=== PATIENT | male | born 1940 | race Hispanic/Latino ===

== ENCOUNTER 2017-02-17 13:06 | Inpatient (IN) | payer MEDICARE, OTHER ==
[2017-02-17 13:06] VITALS: BMI 26.6
--- NOTE | 2017-02-17 14:19 | ED PDOC ---
HPI: Male Pain Time Seen by Provider: 02/17/17 13:20 Chief Complaint (Nursing): Male Genitourinary Chief Complaint (Provider): Urinary retention History Per: Patient History/Exam Limitations: no limitations Onset/Duration Of Symptoms: Days (x1) Current Symptoms Are (Timing): Still Present Severity: Mild Pain Scale Rating Of: 2 Associated Symptoms: Urinary Symptoms (urinary retention) Additional Complaint(s): Dayday Cleaning is a 76 year old male, with a past medical history of bladder CA stage 2 and incisional hernia, who was sent to the emergency department by his PMD for urinary retention after Dr. Germain was unable to place august due to strictures. Dr. Germain wants to take patient to the OR. Patient denies any other medical complaints. PMD: Jessica Germain Past Medical History Reviewed: Historical Data, Nursing Documentation, Vital Signs Vital Signs: Last Vital Signs Temp 98.0 F 02/17/17 13:13 Pulse 70 02/17/17 13:13 Resp 16 02/17/17 13:13 BP 144/65 02/17/17 13:13 Pulse Ox 100 02/17/17 13:13 - Medical History PMH: Diverticulitis, HTN, Hypercholesterolemia - Surgical History Surgical History: Hernia Repair - Family History Family History: States: Unknown Family Hx - Social History Ex-Smoker (has not smoked in the last 12 months): Yes Alcohol: Occasional Drugs: Denies - Immunization History Hx Tetanus Toxoid Vaccination: No Hx Influenza Vaccination: Yes (2016) Hx Pneumococcal Vaccination: Yes (2016) - Home Medications Home Medications: Ambulatory Orders Medication Instructions Recorded Ascorbic Acid [Vitamin C] 1,000 mg PO HS 04/15/16 Ascorbic Acid [Vitamin C] 1,500 mg PO QAM 04/15/16 Atorvastatin [Lipitor] 20 mg PO HS 04/15/16 Docusate [Colace] 100 mg PO BID 04/15/16 Enalapril Maleate [Vasotec] 10 mg PO DAILY 04/15/16 Flaxseed Oil [Flax Seed Oil] 1,400 mg PO HS 04/15/16 Multivit-Min/FA/Lycopen/Lutein 1 tab PO DAILY 04/15/16 [Centrum Silver Tablet] Omeprazole [Omeprazole] 20 mg PO QPM 04/15/16 Vit C/Vit E/Lutein/Min/[place]usa-3 1 cap PO DAILY 04/15/16 [Ocuvite Softgel] Bethanechol [Urecholine] 50 mg PO BID 04/25/16 - Allergies Allergies/Adverse Reactions: Allergies Allergy/AdvReac Type Severity Reaction Status Date / Time No Known Allergies Allergy Verified 02/17/17 13:13 Review of Systems ROS Statement: Except As Marked, All Systems Reviewed And Found Negative Genitourinary Male: Positive for: Other (urinary retention) Physical Exam - Reviewed Nursing Documentation Reviewed: Yes Vital Signs Reviewed: Yes - Physical Exam Appears: Positive for: Well, Non-toxic, No Acute Distress Head Exam: Positive for: ATRAUMATIC, NORMAL INSPECTION, NORMOCEPHALIC Skin: Positive for: Normal Color, Warm, Dry Neck: Positive for: Normal, Painless ROM, Supple Cardiovascular/Chest: Positive for: Regular Rate, Rhythm. Negative for: Murmur Respiratory: Positive for: Normal Breath Sounds. Negative for: Respiratory Distress Gastrointestinal/Abdominal: Positive for: Normal Exam, Bowel Sounds, Soft, Distended (slight). Negative for: Tenderness Back: Positive for: Normal Inspection. Negative for: L CVA Tenderness, R CVA Tenderness, Vertebral Tenderness Extremity: Positive for: Normal ROM. Negative for: Pedal Edema, Deformity Neurologic/Psych: Positive for: Alert, Oriented (x3). Negative for: Motor/ Sensory Deficits - Laboratory Results Result Diagrams: 02/17/17 14:28 02/17/17 14:28 - ECG O2 Sat by Pulse Oximetry: 100 (RA) Pulse Ox Interpretation: Normal Medical Decision Making Medical Decision Making: Initial Impression: Urinary retention for procedure today Initial Plan: --Type and screen --EKG --Comp metabolic Panel --CBC w/ differential --PTT --Patient --Chest potable [RAD] --Urine culture --Urinalysis --reevaluation dr germain aware of pt and of admission. 15:02 Chest x-ray FINDINGS: LUNGS: The lungs are hyperinflated and there is peribronchial thickening with chronic changes in both lungs. No focal consolidation. PLEURA: No significant pleural effusion identified, no pneumothorax apparent. CARDIOVASCULAR: Normal. OSSEOUS STRUCTURES: No significant abnormalities. VISUALIZED UPPER ABDOMEN: Normal. OTHER FINDINGS: None. IMPRESSION: No active disease. COPD. Scribe Attestation: Documented by Ziyad Morrison, acting as a scribe for Rachel Sampson MD Provider Scribe Attestation: All medical record entries made by the Scribe were at my direction and personally dictated by me. I have reviewed the chart and agree that the record accurately reflects my personal performance of the history, physical exam, medical decision making, and the department course for this patient. I have also personally directed, reviewed, and agree with the discharge instructions and disposition. Disposition - Clinical Impression Clinical Impression: Urinary retention - Patient ED Disposition Is Patient to be Admitted: Yes - Disposition Disposition Time: 15:00 Condition: STABLE
[2017-02-17 14:37] LABS: BASO # 0.1 K/uL (0.0-0.2); BASO % 0.7 % (0.0-2.0); EOS # 0.2 K/uL (0.0-0.7); EOS % 2.3 % (0.0-4.0); HEMATOCRIT 50.7 % (35.0-51.0); LYMPH # 1.3 K/uL (1.0-4.3); LYMPH % 16.5 % (20.0-40.0); MEAN CORPUSCULAR HEMOGLOBIN 28.4 pg (27.0-31.0); MEAN PLATELET VOLUME 8.3 fl (7.2-11.7); MONO # 0.7 K/uL (0.0-0.8); MONO % 8.7 % (0.0-10.0); NEUT # 5.7 K/uL (1.8-7.0); NEUT % 71.8 % (50.0-75.0); NRBC % 0.2 % (0.0-0.0); RED CELL DISTRIBUTION WIDTH 16.8 % (11.5-14.5)
[2017-02-17 14:52] LABS: ALKALINE PHOSPHATASE 74 U/L (38-126); ALT/SGPT 33 U/L (21-72); AST/SGOT 35 U/L (17-59); BILIRUBIN,TOTAL 0.8 mg/dl (0.2-1.3); BLOOD UREA NITROGEN 19 mg/dl (9-20); CALCIUM 9.3 mg/dL (8.4-10.2); CARBON DIOXIDE 25 mmol/L (22-30); CHLORIDE 105 mmol/L (98-107); GFR AFRICAN-AMERICAN > 60; GLUCOSE,RANDOM 85 mg/dL (75-110); PARTIAL THROMBOPLASTIN TIME 31.9 Seconds (25.6-37.1); SODIUM 142 mmol/l (132-148); TOTAL PROTEIN 8.3 G/DL (6.3-8.2)
--- NOTE | 2017-02-17 15:04 | RAD ---
HISTORY: urinary COMPARISON: No prior. FINDINGS: LUNGS: The lungs are hyperinflated and there is peribronchial thickening with chronic changes in both lungs. No focal consolidation. PLEURA: No significant pleural effusion identified, no pneumothorax apparent. CARDIOVASCULAR: Normal. OSSEOUS STRUCTURES: No significant abnormalities. VISUALIZED UPPER ABDOMEN: Normal. OTHER FINDINGS: None. IMPRESSION: No active disease. COPD.
[2017-02-17 15:12] LABS: ALB/GLOB RATIO 1.3 (1.0-2.1)
[2017-02-17] MEDS ORDERED: Lidocaine 4% (Laryng-O-Jet) Kit MM ONE (18:47)
[2017-02-17] MEDS ORDERED: Succinylcholine 200 mg/10 ml Inj IV ONE (18:47)
[2017-02-17] MEDS ORDERED: Propofol 10 mg/ml Inj (20 ML) ONE (18:47)
[2017-02-17] MEDS ORDERED: cefTRIAXone IV 1 gm in Dextros 50 ML IVPB ONE (18:54)
[2017-02-17] MEDS ORDERED: Lactated Ringer's 1,000 ML IV ONE (19:05)
[2017-02-17] MEDS ORDERED: Lidocaine 2% Jelly (Uro-Jet) ONE (19:24)
[2017-02-17] MEDS ORDERED: HYDROmorphone 0.5 mg/0.5 ml ISec IVP PRN (20:16)
[2017-02-17] MEDS ORDERED: Lactated Ringer's 1,000 ML IV SCH (20:30)
[2017-02-17 22:59] VITALS: BP 147/70; PULSE 65; RESP 20; TEMP 97.6
--- NOTE | 2017-02-18 11:21 | CARD ---
APPROVED REPORT EKG Measurement Heart [id number] <Conclusion> Normal sinus rhythm Normal ECG
[2017-02-18 14:20] VITALS: O2SAT 100
--- NOTE | 2017-02-18 16:51 | OP ---
PROCEDURE DATE: 02/17/2017 PREOPERATIVE DIAGNOSIS: Bladder neck stricture. POSTOPERATIVE DIAGNOSIS: Bladder neck stricture. PROCEDURE PERFORMED ON THE PATIENT: Cystoscopy with an internal optical urethrotomy. DESCRIPTION OF PROCEDURE: The patient was placed on the operating table in a dorsal lithotomy position. The area of the groin was draped and prepped in a sterile manner. Using an optical urethrotome, we were able to get to the level of the bladder neck. At that point, the urethrotome could not be passed beyond this area, so I used the urethrotome to make 2 incisions, one at the 4 o'clock and one at the 8 o'clock positions. Once this was done, then there was free access into the bladder and it appeared well. There was some minimal bleeding at the site of the incisions, so I decided to cauterize them and once that bleeding was under control, then the instrumentation was removed and left a #24 two-way Bello catheter into the bladder and the outflow was clear. The patient was taken from the operating room in good condition. Jessica Germain MD
--- NOTE | 2017-02-19 12:37 | DS ---
The patient came in for elective transurethral resection of the bladder neck. The patient underwent the procedure unremarkably. Postoperatively, he was stable. The urine in the Bello catheter was clear. He was discharged to home with a prescription for Cipro, to be taken twice a day. He will follow up in my office on Thursday, in two days, to remove the Bello catheter. Jessica Germain MD
== END 2017-02-17 22:30 | disposition home or self-care (01) | DRG 672 ==
LOC: H.ER 13:06 → H.ERHOLD 15:01 → H.MEDSURG1 18:24
PROVIDERS: ADMIT Urology; ATTEND Urology
PROC: 0TQD8ZZ Repair Urethra, Via Natural or Artificial Opening Endoscopic (ICD-10-PCS; principal; 2017-02-17 18:00)
DX: N32.0 Bladder-neck obstruction (principal); J44.9 Chronic obstructive pulmonary disease, unspecified; R33.9 Retention of urine, unspecified; I10 Essential (primary) hypertension; E78.00 Pure hypercholesterolemia, unspecified; Z85.51 Personal history of malignant neoplasm of bladder; Z87.891 Personal history of nicotine dependence

== ENCOUNTER 2017-07-31 06:59 | Day surgery (SDC) | payer MEDICARE, OTHER ==
[2017-07-30 13:44] VITALS: BMI 26.9
[2017-07-31] MEDS ORDERED: Lactated Ringer's 1,000 ML IV ONE (08:19)
[2017-07-31] MEDS ORDERED: cefTRIAXone (Rocephin) 1 gm Inj ONE (09:11)
[2017-07-31] MEDS ORDERED: Midazolam 2 MG/2 ML VIAL ONE (09:35)
[2017-07-31] MEDS ORDERED: Propofol 10 mg/ml Inj (20 ML) ONE (09:35)
[2017-07-31] MEDS ORDERED: Lidocaine 2% Jelly (5 ml) TOP ONE (10:00)
[2017-07-31] MEDS ORDERED: ePHEDrine 50 mg/ml Inj ONE (10:13)
[2017-07-31 13:24] VITALS: RESP 18
[2017-07-31 15:13] VITALS: BP 120/75; PULSE 73; TEMP 97.5; O2SAT 95
--- NOTE | 2017-07-31 20:12 | OP ---
PROCEDURE DATE: 07/31/2017 PREOPERATIVE DIAGNOSIS: Bladder neck stricture. POSTOPERATIVE DIAGNOSIS: Bladder neck stricture. PROCEDURE PERFORMED: Laser resection of bladder neck stricture. DESCRIPTION OF PROCEDURE: The patient was placed on the operating table in a dorsal lithotomy position, given general anesthesia. The area of the groin was draped and prepped at this time. A 21-cystoscope was placed per urethra. I took some documenting photos of the urethra. At the level of the verumontanum, there was a mild stenosis there, which easily opened with the cystoscope, but at the level of the bladder neck, that was an impassable stricture. I was able to get a guidewire through this opening, I took some documenting photos of this and then I proceeded with the holmium laser to resect the bladder neck stricture. I did this circumferentially until there was a significant opening, I was able to get in the 21-cystoscope into the bladder with ease at this time. Once this was done, then I removed the guidewires and I then inserted a #22 two-way Bello catheter. There was very little blood loss during the procedure, less than 5 mL. The patient sustained the procedure well. He was taken from the operating room with 4 liter leg bag. Jessica Germain MD
== END 2017-07-31 14:10 | disposition home or self-care (01) ==
LOC: H.OPSURG 06:59
PROVIDERS: ATTEND Urology
DX: N32.0 Bladder-neck obstruction (principal); E78.5 Hyperlipidemia, unspecified; I10 Essential (primary) hypertension
CPT/HCPCS: 52500; J0696; J2001; J2250; J2704; J3010; J7120